=== PATIENT | female | born 1965 ===

== ENCOUNTER 2017-06-24 17:36 | Observation (INO) | payer BC, OTHER ==
[2017-06-24 17:36] VITALS: BMI 22.8
--- NOTE | 2017-06-24 19:57 | C.PDOC ---
History Of Present Illness 52 year old male brought in to the ER via EMS for acute ETOH intoxication. Patient appears lethargic but easily arousable; no injuries present, denies physical complaints at this time. Chief Complaint (Nursing): Substance Abuse History Per: Patient History/Exam Limitations: no limitations Onset/Duration Of Symptoms: Hrs Current Symptoms Are (Timing): Still Present Suicide/Self Injury Attempted (Context): None Modifying Factor(s): Alcohol Associated Symptoms: denies: Depression, Suicidal Thoughts, Suicidal Plan Involuntary Hold By: None Recent travel outside of the [place]: No Past Medical History Reviewed: Historical Data, Nursing Documentation, Vital Signs Vital Signs: Last Vital Signs Temp 98 F 06/25/17 02:49 Pulse 89 06/25/17 02:49 Resp 16 06/25/17 02:49 BP 112/69 06/25/17 02:49 Pulse Ox 96 06/25/17 03:56 - Medical History PMH: Anxiety, Depression, Chronic Pain (right foot pain) Surgical History: Hernia Repair - [facility] Procedures ALCOHOL DETOXIFICATION (08/11/15) DETOXIFICATION SERVICES FOR SUBSTANCE ABUSE TREATMENT (08/13/16) GROUP GUITAR REPAIRER FOR SUBSTANCE ABUSE TREATMENT, PSYCHOEDUCATION (08/13/16) GROUP PSYCHOTHERAPY (02/22/16) MEDICATION MANAGEMENT (02/22/16) Family History: States: Unknown Family Hx - Social History Hx Tobacco Use: Yes (10 cigarettes daily) Hx Alcohol Use: Yes Hx Substance Use: Yes (denies) - Immunization History Hx Tetanus Toxoid Vaccination: No Hx Influenza Vaccination: No Hx Pneumococcal Vaccination: No Review Of Systems Constitutional: Negative for: Fever, Chills Gastrointestinal: Negative for: Nausea, Vomiting, Diarrhea Physical Exam - Physical Exam Appears: Non-toxic, No Acute Distress, Other (ETOH on breath, lethargic) Skin: Normal Color, Warm, Dry Head: Atraumatic, Normacephalic Oral Mucosa: Moist Chest: Symmetrical, No Tenderness Cardiovascular: Rhythm Regular, No Murmur Respiratory: Normal Breath Sounds, No Rales, No Rhonchi, No Wheezing Gastrointestinal/Abdominal: Soft, No Tenderness Neurological/Psych: Oriented x3, Normal Speech, Normal Cognition ED Course And Treatment - Laboratory Results Result Diagrams: 06/24/17 20:16 06/24/17 20:16 O2 Sat by Pulse Oximetry: 96 (Room air) Pulse Ox Interpretation: Normal Progress Note: Blood work and urinalysis ordered. ED OBSERVATION Date of observation admission: 06/24/17 Time of observation admission: 19:16 - Observation admission statement Patient is being placed in observation because:: Acute ETOH intoxication - Goals of Observation Goals of observation are:: Sobriety Disposition Counseled Patient/Family Regarding: Diagnosis - Disposition Disposition: HOME/ ROUTINE Disposition Time: 05:36 Condition: STABLE - POA Present On Arrival: None - Clinical Impression Clinical Impression: Alcohol intoxication - Scribe Statement The provider has reviewed the documentation as recorded by the Scribgiles Monahan All medical record entries made by the Lobo were at my direction and personally dictated by me. I have reviewed the chart and agree that the record accurately reflects my personal performance of the history, physical exam, medical decision making, and the department course for this patient. I have also personally directed, reviewed, and agree with the discharge instructions and disposition.
[2017-06-24 20:26] LABS: BASO % 0.7 % (0.0-2.0); EOS # 0.1 K/uL (0.0-0.7); EOS % 2.4 % (0.0-4.0); HEMATOCRIT 39.5 % (34.0-47.0); LYMPH # 2.5 K/uL (1.0-4.3); LYMPH % 41.2 % (20.0-40.0); MEAN CORPUSCULAR HEMOGLOBIN 33.4 pg (27.0-31.0); MEAN CORPUSCULAR HGB CONC 33.5 g/dL (33.0-37.0); MEAN PLATELET VOLUME 8.3 fL (7.2-11.7); MONO # 0.2 K/uL (0.0-0.8); MONO % 3.6 % (0.0-10.0); RED CELL DISTRIBUTION WIDTH 14.7 % (11.5-14.5)
[2017-06-24 20:30] LABS: MEAN CELL VOLUME 99.8 fL (81.0-99.0); WHITE BLOOD COUNT 6.1 K/uL (4.8-10.8)
[2017-06-24 20:45] LABS: CHLORIDE 102 mmol/L (98-107)
[2017-06-24 20:46] LABS: POTASSIUM 3.5 mmol/L (3.6-5.2); SODIUM 147 mmol/L (132-148)
[2017-06-24 20:48] LABS: ALB/GLOB RATIO 1.4 (1.0-2.1); AST/SGOT 57 U/L (14-36); BILIRUBIN,TOTAL 0.4 mg/dL (0.2-1.3); BLOOD UREA NITROGEN 17 mg/dL (7-17); CARBON DIOXIDE 25 mmol/L (22-30); GFR AFRICAN-AMERICAN > 60; TOTAL PROTEIN 6.7 g/dL (6.3-8.3)
[2017-06-24 20:49] LABS: ALKALINE PHOSPHATASE 76 U/L (38-126); ALT/SGPT 61 U/L (9-52); CALCIUM 8.6 mg/dl (8.6-10.4); GLUCOSE,RANDOM 92 mg/dL (65-105)
[2017-06-24 21:11] LABS: ALCOHOL SERUM 420 mg/dl (0-10)
[2017-06-24 22:26] VITALS: RESP 16; TEMP 98
[2017-06-25 02:50] VITALS: BP 112/69; PULSE 89
[2017-06-25 03:56] VITALS: O2SAT 96
== END 2017-06-25 05:37 | disposition home or self-care (01) ==
LOC: C.ER 17:36 → C.9E 21:16 → C.9OBSV 22:58
PROVIDERS: ADMIT Emergency Medicine; ATTEND Emergency Medicine
DX: F10.120 Alcohol abuse with intoxication, uncomplicated (principal); Y90.8 Blood alcohol level of 240 mg/100 ml or more; F17.210 Nicotine dependence, cigarettes, uncomplicated
CPT/HCPCS: 36415; 80053; 82948; 85025; 99284; G0378; G0480

== ENCOUNTER 2017-10-15 09:16 | Emergency (ER) | payer BC, MEDICAID ==
[2017-10-15 09:45] VITALS: BMI 22.5
--- NOTE | 2017-10-15 09:47 | C.PDOC ---
History Of Present Illness 52 yr old female with PMHx of depression and alcohol abuse, presents to the ER for evaluation of suicidal ideation. Patient states " I feel like cutting my wrist" for the past few days. Patient is currently appears slight under alcohol intoxication but awake and alert. Pt Denies any active physical complaints. Time Seen by Provider: 10/15/17 09:42 Chief Complaint (Nursing): Psychiatric Evaluation History Per: Patient History/Exam Limitations: no limitations Onset/Duration Of Symptoms: Days Current Symptoms Are (Timing): Still Present Suicide/Self Injury Attempted (Context): Cut Wrists Modifying Factor(s): Alcohol Past Medical History Reviewed: Historical Data, Nursing Documentation, Vital Signs Vital Signs: Last Vital Signs Temp 98.6 F 10/15/17 16:18 Pulse 88 10/15/17 16:18 Resp 20 10/15/17 16:18 BP 120/83 10/15/17 16:18 Pulse Ox 96 10/15/17 16:18 - Medical History PMH: Anxiety, Depression, Chronic Pain (right foot pain) Surgical History: Hernia Repair - [facility] Procedures ALCOHOL DETOXIFICATION (08/11/15) DETOXIFICATION SERVICES FOR SUBSTANCE ABUSE TREATMENT (08/13/16) GROUP LYE TREATER FOR SUBSTANCE ABUSE TREATMENT, PSYCHOEDUCATION (08/13/16) GROUP PSYCHOTHERAPY (02/22/16) MEDICATION MANAGEMENT (02/22/16) Family History: States: No Known Family Hx - Social History Hx Tobacco Use: Yes (10 cigarettes daily) Hx Alcohol Use: Yes Hx Substance Use: Yes (denies) - Immunization History Hx Tetanus Toxoid Vaccination: No Hx Influenza Vaccination: No Hx Pneumococcal Vaccination: No Review Of Systems Except As Marked, All Systems Reviewed And Found Negative. Constitutional: Negative for: Fever Cardiovascular: Negative for: Chest Pain Respiratory: Negative for: Shortness of Breath Gastrointestinal: Negative for: Nausea, Vomiting, Abdominal Pain Psych: Positive for: Suicidal ideation Physical Exam - Physical Exam Appears: Well, Non-toxic, No Acute Distress Skin: Warm, Dry, No Rash Head: Atraumatic, Normacephalic Eye(s): bilateral: PERRL Nose: No Flaring, No Discharge Oral Mucosa: Moist, No Drooling Tongue: Normal Appearing Lips: Normal Appearing Throat: No Erythema, No Exudate, No Drooling Neck: Trachea Midline, Supple Chest: Symmetrical, No Tenderness Cardiovascular: Rhythm Regular, No Murmur Respiratory: No Decreased Breath Sounds, No Rales, No Rhonchi, No Stridor, No Wheezing Back: No CVA Tenderness Extremity: Normal ROM, No Deformity, No Swelling Extremity: Bilateral: Atraumatic Neurological/Psych: Oriented x3, Normal Speech, Normal Motor, Normal Sensation, Normal Reflexes ED Course And Treatment - Laboratory Results Result Diagrams: 10/15/17 10:34 10/15/17 10:34 Lab Interpretation: Normal Urine POC: Negative ECG: Interpreted By Me, Viewed By Me ECG Rhythm: Sinus Rhythm ECG Interpretation: Normal Interpretation Of ECG: Normal axis. No acute T wave or ST-T changes. Rate From EC (BPM) O2 Sat by Pulse Oximetry: 96 (RA) Pulse Ox Interpretation: Normal - Radiology CXR: Viewed By Me, Read By Radiologist CXR Interpretation: Yes: No Acute Disease Progress Note: At 12:10, pt is medically cleared for crisis evaluation now. AT 14:10, pt remained stable, not in any apparent distress. AAO#3. Neurologicaly intact. Pt was evaluated by Crisis and admission arranged to psych floor DR.Mirza moore. As per Crisis, pt is unable to be admitted to [facility] psych Unit " beacuse her significant other admitted to Unit with same compalints", conflict of patient privacy. Arrangement to transfered pateint to [facility] psych Unit made. Medical Decision Making Medical Decision Making: PLAN: * CXR * EKG * Alcohol Serum * Drug Screen * CBC * CMP * Urinalysis * Tylenol PO * Zofran PO Disposition - Disposition Disposition: OTHER INSTITUTION Disposition Time: 14:42 Condition: STABLE - Clinical Impression Clinical Impression: Major depression, Suicidal ideation - PA / ENAMEL DIPPER / Resident Statement MD/DO has reviewed & agrees with the documentation as recorded. - Scribe Statement The provider has reviewed the documentation as recorded by the Scribe Chely Paulino All medical record entries made by the Scribe were at my direction and personally dictated by me. I have reviewed the chart and agree that the record accurately reflects my personal performance of the history, physical exam, medical decision making, and the department course for this patient. I have also personally directed, reviewed, and agree with the discharge instructions and disposition.
--- NOTE | 2017-10-15 10:28 | RAD ---
HISTORY: Detox/Psy COMPARISON: No prior. TECHNIQUE: Chest PA and lateral FINDINGS: LUNGS: No focal infiltrate or effusion. Bibasilar breast and nipple shadows. Mild biapical pleural thickening. PLEURA: No significant pleural effusion identified. No pneumothorax apparent. CARDIOVASCULAR: Normal. OSSEOUS STRUCTURES: No significant abnormalities. VISUALIZED UPPER ABDOMEN: Normal. OTHER FINDINGS: None. IMPRESSION: No active disease.
[2017-10-15 10:37] LABS: BASO # 0.1 K/uL (0.0-0.2); BASO % 1.1 % (0.0-2.0); EOS # 0.1 K/uL (0.0-0.7); EOS % 3.1 % (0.0-4.0); HEMATOCRIT 33.5 % (34.0-47.0); LYMPH # 1.5 K/uL (1.0-4.3); LYMPH % 31.1 % (20.0-40.0); MEAN CELL VOLUME 98.1 fL (81.0-99.0); MEAN CORPUSCULAR HEMOGLOBIN 33.3 pg (27.0-31.0); MEAN CORPUSCULAR HGB CONC 33.9 g/dL (33.0-37.0); MEAN PLATELET VOLUME 7.3 fL (7.2-11.7); MONO # 0.3 K/uL (0.0-0.8); MONO % 5.5 % (0.0-10.0); NRBC % 0.1 % (0.0-2.0); RED CELL DISTRIBUTION WIDTH 13.6 % (11.5-14.5); WHITE BLOOD COUNT 4.8 K/uL (4.8-10.8)
[2017-10-15 10:53] LABS: ALB/GLOB RATIO 1.1 (1.0-2.1); ALCOHOL SERUM 211 mg/dl (0-10); ALKALINE PHOSPHATASE 80 U/L (38-126); ALT/SGPT 37 U/L (9-52); AST/SGOT 35 U/L (14-36); BILIRUBIN,TOTAL 0.3 mg/dL (0.2-1.3); BLOOD UREA NITROGEN 17 mg/dL (7-17); CALCIUM 8.1 mg/dl (8.6-10.4); CARBON DIOXIDE 23 mmol/L (22-30); CHLORIDE 104 mmol/L (98-107); GFR AFRICAN-AMERICAN > 60; GLUCOSE,RANDOM 88 mg/dL (65-105); POTASSIUM 3.6 mmol/L (3.6-5.2); SODIUM 137 mmol/L (132-148); TOTAL PROTEIN 7.5 g/dL (6.3-8.3)
[2017-10-15 11:24] LABS: RBC URINE < 1 /hpf (0-3); URINE BILIRUBIN NEGATIVE (NEGATIVE); URINE BLOOD NEGATIVE (NEGATIVE); URINE COLOR Straw (YELLOW); URINE GLUCOSE (UA) NORMAL (Normal); URINE KETONE NEGATIVE (NEGATIVE); URINE LEUKOCYTE ESTERASE NEG Leu/uL (Negative); URINE PROTEIN NEGATIVE (NEGATIVE); URINE UROBILINOGEN NORMAL mg/dL (0.2-1.0); WBC URINE < 1 /hpf (0-5)
[2017-10-15 17:09] VITALS: BP 144/84; PULSE 82; RESP 16; TEMP 97.8; O2SAT 97
--- NOTE | 2017-10-17 17:55 | CARD ---
APPROVED REPORT EKG Measurement Heart [id number] <Conclusion> Normal sinus rhythm Normal ECG
== END 2017-10-15 17:25 | disposition short-term general hospital (02) ==
LOC: C.ER 09:16 → C.9E 14:44 → UNDOADMIN 14:44
DX: F32.9 Major depressive disorder, single episode, unspecified (principal); R45.851 Suicidal ideations; Z87.891 Personal history of nicotine dependence

== ENCOUNTER 2017-12-22 18:21 | Emergency (ER) | payer MEDICAID, OTHER ==
[2017-12-22 18:21] VITALS: BMI 22.0
--- NOTE | 2017-12-22 18:42 | C.PDOC ---
History Of Present Illness Patient is a 52 y/o F presenting for detox. She admits to drinking today. She ambulated into ED without issue. Patient was made aware of lack of detox beds and immediately became irritate and agitated. She was refusing futher evaluation and began to scream at staff. Time Seen by Provider: 12/22/17 18:25 Chief Complaint (Nursing): Medical Clearance Past Medical History - Medical History PMH: Anxiety, Depression, Chronic Pain (right foot pain) Denies: Diabetes, Hepatitis, HIV, HTN, Chronic Kidney Disease, Seizures, Sexually Transmitted Disease Surgical History: Hernia Repair - [facility] Procedures ALCOHOL DETOXIFICATION (08/11/15) DETOXIFICATION SERVICES FOR SUBSTANCE ABUSE TREATMENT (08/13/16) GROUP RIM FIRE PRIMING OPERATOR FOR SUBSTANCE ABUSE TREATMENT, PSYCHOEDUCATION (08/13/16) GROUP PSYCHOTHERAPY (02/22/16) MEDICATION MANAGEMENT (02/22/16) Family History: States: Unknown Family Hx - Social History Hx Tobacco Use: Yes (10 cigarettes daily) Hx Alcohol Use: Yes Hx Substance Use: No - Immunization History Hx Tetanus Toxoid Vaccination: No Hx Influenza Vaccination: No Hx Pneumococcal Vaccination: No Physical Exam - Physical Exam Appears: Agitated Neck: Supple Extremity: Other (moving extremities x4) Neurological/Psych: Oriented x3 Gait: Steady Medical Decision Making Medical Decision Making: Patient is verbally abusive to staff and yelling profanities. Security was called. I am unable to perform exam as patient is refusing exam. She is irrate that there are no detox beds available. She is AAox3 with no homicidal or suicidal ideation. No indication for sedation. She is ambulating around with steady gait. Patient was aggressive and I was unable to perform any further exam due to my safety Disposition - Disposition Disposition: HOME/ ROUTINE Disposition Time: 18:41 Condition: UNKNOWN Forms: [employer] (Chinese) - Clinical Impression Clinical Impression: Agitation, Alcohol abuse
== END 2017-12-22 18:59 | disposition home or self-care (01) ==
LOC: C.ER 18:21
DX: F10.10 Alcohol abuse, uncomplicated (principal); R45.1 Restlessness and agitation; F17.210 Nicotine dependence, cigarettes, uncomplicated

== ENCOUNTER 2018-09-14 13:21 | Inpatient (IN) | payer BC, MEDICAID ==
[2018-09-14 13:22] VITALS: BMI 23.6
[2018-09-14 14:01] LABS: BASO # 0.1 K/uL (0.0-0.2); EOS # 1.2 K/uL (0.0-0.7); EOS % 14.2 % (0.0-4.0); HEMOGLOBIN 11.7 g/dL (11.0-16.0); LYMPH % 36.7 % (20.0-40.0); MEAN CORPUSCULAR HEMOGLOBIN 31.1 pg (27.0-31.0); MEAN CORPUSCULAR HGB CONC 33.8 g/dL (33.0-37.0); MONO # 0.3 K/uL (0.0-0.8); MONO % 3.9 % (0.0-10.0); NEUT # 3.6 K/uL (1.8-7.0); NEUT % 44.2 % (50.0-75.0); NRBC % 0.1 % (0.0-2.0); RBC 3.77 Mil/uL (3.80-5.20); RED CELL DISTRIBUTION WIDTH 12.5 % (11.5-14.5)
[2018-09-14 14:06] LABS: MEAN CELL VOLUME 91.8 fL (81.0-99.0); WHITE BLOOD COUNT 8.1 K/uL (4.8-10.8)
[2018-09-14 14:19] LABS: ALB/GLOB RATIO 1.6 (1.0-2.1); ALBUMIN 4.3 g/dL (3.5-5.0); ALT/SGPT 24 U/L (9-52); AST/SGOT 24 U/L (14-36); BLOOD UREA NITROGEN 11 mg/dL (7-17); GFR NON-AFRICAN AMERICAN > 60
--- NOTE | 2018-09-14 14:41 | C.PDOC ---
History Of Present Illness 53-year-old female, presents to the emergency department for psychiatric evaluation. Patient was in treatment in [place], after which she was discharged and clean until 55 days ago. Patient was incarcerated and on bench warrant. She was released on 09/07 and has been "self medicating" with alcohol since. Patient states she has not been able to take her psych meds (Lexapro, Lamictal, Gabapentin) due to lack of insurance. No SI at this time. Time Seen by Provider: 09/14/18 13:42 Chief Complaint (Nursing): Psychiatric Evaluation History Per: Patient History/Exam Limitations: no limitations Current Symptoms Are (Timing): Still Present Past Medical History Reviewed: Historical Data, Nursing Documentation, Vital Signs Vital Signs: Last Vital Signs Temp 98.5 F 09/14/18 13:29 Pulse 103 H 09/14/18 13:29 Resp 18 09/14/18 13:29 BP 118/80 09/14/18 13:29 Pulse Ox 100 09/14/18 13:29 - Medical History PMH: Anxiety, Depression, Chronic Pain (right foot pain) Surgical History: Hernia Repair - [facility] Procedures ALCOHOL DETOXIFICATION (08/11/15) DETOXIFICATION SERVICES FOR SUBSTANCE ABUSE TREATMENT (08/13/16) GROUP MASTER RIGGER FOR SUBSTANCE ABUSE TREATMENT, PSYCHOEDUCATION (08/13/16) GROUP PSYCHOTHERAPY (02/22/16) MEDICATION MANAGEMENT (02/22/16) Family History: States: No Known Family Hx - Social History Hx Tobacco Use: Yes (10 cigarettes daily) Hx Alcohol Use: Yes (Denies) Hx Substance Use: No (Denies) - Immunization History Hx Tetanus Toxoid Vaccination: No Hx Influenza Vaccination: No Hx Pneumococcal Vaccination: No Review Of Systems Constitutional: Negative for: Fever Cardiovascular: Negative for: Chest Pain Gastrointestinal: Negative for: Vomiting Musculoskeletal: Negative for: Back Pain Skin: Negative for: Rash Psych: Negative for: Psychosis, Suicidal ideation, Withdrawal Physical Exam - Physical Exam Appears: Non-toxic, No Acute Distress Skin: Normal Color, Warm, Dry, No Rash Head: Atraumatic, Normacephalic Eye(s): bilateral: Normal Inspection, PERRL, EOMI Nose: Normal Oral Mucosa: Moist Lips: Normal Appearing Neck: Normal ROM Chest: Symmetrical Cardiovascular: Rhythm Regular, No Murmur Respiratory: Normal Breath Sounds, No Accessory Muscle Use Gastrointestinal/Abdominal: Soft, No Tenderness Back: Normal Inspection Extremity: Normal ROM, No Deformity Neurological/Psych: Oriented x3, Normal Speech ED Course And Treatment - Laboratory Results Result Diagrams: 09/14/18 13:57 09/14/18 13:57 Lab Interpretation: No Acute Changes O2 Sat by Pulse Oximetry: 100 Pulse Ox Interpretation: Normal (RA) Medical Decision Making Medical Decision Making: Plan: * Bloodwork * UA Labs ordered and reviewed. In my clinical judgment patient is medically cleared and stable for psychiatric admission. rock worker contacted for evaluation. As per CW patient is to be admitted. Disposition - Disposition Disposition: HOSPITALIZED Disposition Time: 16:40 Condition: STABLE - POA Present On Arrival: None - Clinical Impression Clinical Impression: Depression - Scribe Statement The provider has reviewed the documentation as recorded by the Scribe (Clint Bhandari) All medical record entries made by the Scribe were at my direction and personally dictated by me. I have reviewed the chart and agree that the record accurately reflects my personal performance of the history, physical exam, medical decision making, and the department course for this patient. I have also personally directed, reviewed, and agree with the discharge instructions and disposition. Decision To Admit - Pt Status Changed To: Hospital Disposition Of: Inpatient - Admit Certification Admit to Inpatient:: After my assessment, the patient will require hospitalization for at least two midnights. This is because of the severity of symptoms shown, intensity of services needed, and/or the medical risk in this patient being treated as an outpatient. - InPatient: Physician Admission Certification: I certify that this patient requires 2 or more midnights of care for the following reason:: Patient with history of depression, needs to resume meds - . Bed Request Type: Psychiatry Admitting Physician: Verónica Pringle Patient Diagnosis: Depression
[2018-09-14 16:01] LABS: HCG,QUALITATIVE URINE NEGATIVE (NEGATIVE); SQUAMOUS EPITHIAL 2 /hpf (0-5); URINE BILIRUBIN NEGATIVE (NEGATIVE); URINE BLOOD NEGATIVE (NEGATIVE); URINE CLARITY Clear (Clear); URINE COLOR Yellow (YELLOW); URINE GLUCOSE (UA) NORMAL (Normal); URINE LEUKOCYTE ESTERASE NEG Leu/uL (Negative); URINE PROTEIN NEGATIVE (NEGATIVE); URINE UROBILINOGEN NORMAL mg/dL (0.2-1.0)
[2018-09-14 16:15] LABS: BARBITURATES, UR NEGATIVE (NEGATIVE); BENZODIAZEPINES, UR NEGATIVE (NEGATIVE); OPIATES, UR NEGATIVE (NEGATIVE); PHENCYCLIDINE, UR NEGATIVE (NEGATIVE)
[2018-09-14 17:22] VITALS: O2SAT 98
--- NOTE | 2018-09-14 17:48 | PCM.BM ---
<Marco A Man - Last Filed: 09/14/18 17:46> Treatment Plan Problems - Problems identified on initial assessmt Depression Date Initiated: 09/14/18 Time Initiated: 17:46 Assessment reference: NA Status: Active Alcohol abuse Date Initiated: 09/14/18 Time Initiated: 17:47 Assessment reference: NA Status: Active Treatment assets and liabiliti Patient Assests: ADL independent, physically healthy Patient Liabilities: live alone, physical pain, financial problems (Unemployed), substance abuse (Alcohol abuse), medical problems, legal issue (Recently incarcerated) - Milieu Protocol Maintain good personal hygiene: daily Encourage regular showers, daily Remind patient to perform daily oral care, every shift Assist patient to perform ADL's Conduct patient checks and document Observation sheet: Q15 minutes (For safety) Maintain personal safety: every shift Educate patient to report safety concerns to staff, every shift Monitor environment for contraband/sharps Medication safety: Monitor for expected outcome, potential side effects: every shift, Assess barriers to learning: every shift, Assess readiness for medication education: every shift <Tam Hayden - Last Filed: 09/15/18 09:45> - Diagnosis (1) Bipolar disorder Status: Acute Interventions: 09/15/18 09:46 * Assess/adjust medications daily and /or as needed * See patient on an individual basis 7x/week to assess level of manic behaviors and stability * Discuss risks, benefits, side effects and alternatives of medications * <Zenaida Mcclelland - Last Filed: 09/15/18 10:21> Family Contact Family involvement: Famliy/SO not involved - Goals for Treatment Patient goals for treatment: "I need ECT." Discharge/Continuing Care - Education Needs Education Needs: Patient Medication, Patient Coping Skills - Discharge Discharge Criteria: Tolerates medication w/o severe side effects, No longer exhibiting s/s of withdrawal, Reduction of target symptoms Discharge to:: Home - Treatment Team Participation Discussed with Family/SO: No Was Patient/Family/SO present at Treatment Team Meeting: Yes
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
[2018-09-16] MEDS ORDERED: Pneumococcal 23-Valent Vaccine IM ONE (10:00)
[2018-09-16] MEDS: Benzocaine 10% Oral Anesthetic (12 ml) MM PRN (16:27)
--- NOTE | 2018-09-16 16:54 | PCM.PYCHPN ---
Psychiatric Progress Note - Psychiatric Progress Note Patient seen today, length of contact: 15 minutes Patient Chief Complaint: I'm feeling much better. Problems Identified/Issues Discussed: Patient seen, chart reviewed, case discussed with the staff. Issues related to illness and treatment were discussed with the patient and staff. Tolerating treatment very well. Reported compliant with treatment with no adverse affects. Patient reported feeling better with treatment. Patient signed 48 hours of notice for discharge. Patient was calm and cooperative. Awake, alert and oriented 3. Aftercare discussed with the patient. At the time of evaluation, patient had no delusions, no auditory or visual hallucinations, no suicidal ideations or homicidal ideations. Medical Problems: None reported Diagnostic Results: Reviewed DSM 5 Symptoms Update: Improving with treatment Medication Change: No Medical Record Reviewed: Yes Mental Status Examination - Cognitive Function Orientation: Person, Place, Situation, Time Memory: Intact Attention: WNL Concentration: WNL Association: WN Fund of Knowledge: [facility] Decription of patient's judgement and insights: Fair - Mood Mood: Depressed (Less than before) - Affect Affect: Depressed - Speech Speech: Appropriate - Formal Thought Process Formal Thought Process: No Impairment Psychotic Thoughts and Behaviors: None - Suicidal Ideation Suicidal Ideation: No - Homicidal Ideation Homicidal Ideation: No Goal/Treatment Plan - Goal/Treatment Plan Need for Continued Stay: Remain at risks for inpatient hospitalization, Discharge may exacerbated symptoms, Severe functional impairment Progress Toward Problem(s) and Goals/Treatment Plan: Patient/staff education. Supportive therapy. Continue treatment as before. Patient will go to [facility] for follow-up care after discharge from the hospital. Estimated Date of D/C: 09/18/18 - Smoking Cessation Smoking Cessation Initiated: No
[2018-09-17] MEDS: Benzocaine 10% Oral Anesthetic (12 ml) MM PRN ×3 (11:07→21:39)
--- NOTE | 2018-09-17 18:00 | PCM.PYCHPN ---
Psychiatric Progress Note - Psychiatric Progress Note Patient seen today, length of contact: 15 minutes Patient Chief Complaint: I'm feeling much better. Problems Identified/Issues Discussed: Patient seen, chart reviewed, case discussed with the staff. Issues related to illness and treatment were discussed with the patient and staff. Tolerating treatment very well. Reported compliant with treatment with no adverse affects. Patient reported feeling better with treatment. Patient signed 48 hours of notice for discharge ending tomorrow. Patient reported in the past she had for ECT and would like to continue ECT in the future. Patient was calm and cooperative. Awake, alert and oriented 3. Aftercare discussed with the patient. At the time of evaluation, patient had no delusions, no auditory or visual hallucinations, no suicidal ideations or homicidal ideations. Medical Problems: None reported Diagnostic Results: Reviewed DSM 5 Symptoms Update: Improving with treatment. Medication Change: No Medical Record Reviewed: Yes Mental Status Examination - Cognitive Function Orientation: Person, Place, Situation, Time Memory: Intact Attention: WNL Concentration: WNL Association: [facility] Fund of Knowledge: [facility] Decription of patient's judgement and insights: Fair - Mood Mood: Neutral - Affect Affect: Other (Appropriate) - Speech Speech: Appropriate - Formal Thought Process Formal Thought Process: No Impairment Psychotic Thoughts and Behaviors: None - Suicidal Ideation Suicidal Ideation: No - Homicidal Ideation Homicidal Ideation: No Goal/Treatment Plan - Goal/Treatment Plan Need for Continued Stay: Remain at risks for inpatient hospitalization, Discharge may exacerbated symptoms, Severe functional impairment Progress Toward Problem(s) and Goals/Treatment Plan: Patient/staff education. Supportive therapy. Continue treatment as before. Patient will go to [facility] for follow-up care after discharge from the hospital. Estimated Date of D/C: 09/18/18 - Smoking Cessation Smoking Cessation Initiated: No
[2018-09-18 06:38] VITALS: BP 104/67; PULSE 75; RESP 18; TEMP 98.3
[2018-09-18] MEDS ORDERED: Influenza Vaccine 60 MCG/0.5 ML SYR (3 yr & up) IM ONE (10:00)
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
== END 2018-09-18 11:13 | disposition home or self-care (01) | DRG 753 ==
LOC: C.ER 13:21 → MERGE 16:39 → C.5E 16:39
PROVIDERS: ADMIT Psychiatry & Neurology Psychiatry; ATTEND Psychiatry & Neurology Psychiatry
PROC: GZHZZZZ Group Psychotherapy (ICD-10-PCS; principal; 2018-09-14)
PROC: HZ59ZZZ Individual Psychotherapy for Substance Abuse Treatment, Supportive (ICD-10-PCS; 2018-09-14)
PROC: GZ56ZZZ Individual Psychotherapy, Supportive (ICD-10-PCS; 2018-09-14)
DX: F31.9 Bipolar disorder, unspecified (principal); F10.20 Alcohol dependence, uncomplicated; Y90.7 Blood alcohol level of 200-239 mg/100 ml; F43.10 Post-traumatic stress disorder, unspecified; F17.210 Nicotine dependence, cigarettes, uncomplicated; Z91.410 Personal history of adult physical and sexual abuse; Z81.3 Family history of other psychoactive substance abuse and dependence

== ENCOUNTER 2018-10-12 01:08 | Emergency (ER) | payer BC, MEDICAID ==
[2018-10-12 01:08] VITALS: BMI 22.8
--- NOTE | 2018-10-12 01:34 | C.PDOC ---
History Of Present Illness 53 year old female is brought to the ED by EMS for public intoxication. Patient was found in front of a bar intoxicated. Patient denies SI/HI, hallucinations, CP, SOB, injury, fall, trauma. Time Seen by Provider: 10/12/18 01:33 Chief Complaint (Nursing): Substance Abuse History Per: Patient, EMS History/Exam Limitations: intoxication Onset/Duration Of Symptoms: Hrs Current Symptoms Are (Timing): Still Present Suicide/Self Injury Attempted (Context): None Modifying Factor(s): Alcohol Associated Symptoms: denies: Depression, Suicidal Thoughts, Suicidal Plan Recent travel outside of the [place]: No Additional History Per: Patient Past Medical History Reviewed: Historical Data, Nursing Documentation, Vital Signs Vital Signs: Last Vital Signs Temp 98.2 F 10/12/18 01:17 Pulse 102 H 10/12/18 01:17 Resp 22 10/12/18 01:17 BP 138/91 H 10/12/18 01:17 Pulse Ox 98 10/12/18 01:17 - Medical History PMH: Depression, HTN Denies: Diabetes, Hepatitis, HIV, Chronic Kidney Disease, Seizures, Sexually Transmitted Disease Surgical History: No Surg Hx - [facility] Procedures GROUP PSYCHOTHERAPY (01/08/18) INDIVIDUAL PSYCHOTHERAPY, SUPPORTIVE (01/08/18) MEDICATION MANAGEMENT (01/08/18) Family History: States: Unknown Family Hx - Social History Hx Alcohol Use: Yes Hx Substance Use: Yes - Immunization History Hx Tetanus Toxoid Vaccination: No Review Of Systems Constitutional: Negative for: Fever, Chills Cardiovascular: Negative for: Chest Pain Respiratory: Negative for: Cough, Shortness of Breath Gastrointestinal: Negative for: Nausea, Vomiting, Abdominal Pain Neurological: Negative for: Weakness, Numbness Psych: Negative for: Depression, Suicidal ideation Physical Exam - Physical Exam Appears: Non-toxic, No Acute Distress Skin: Warm, Dry Head: Normacephalic Eye(s): bilateral: Normal Inspection Neck: Supple Chest: Symmetrical Cardiovascular: Rhythm Regular Respiratory: No Rales, No Rhonchi, No Wheezing Gastrointestinal/Abdominal: Soft, No Tenderness, No Guarding, No Rebound Extremity: Bilateral: Atraumatic, Normal Color And Temperature, Normal ROM Neurological/Psych: Oriented x3, Normal Speech, Normal Cognition Gait: Steady ED Course And Treatment O2 Sat by Pulse Oximetry: 98 (ON RA) Pulse Ox Interpretation: Normal Reevaluation Time: 05:11 Reassessment Condition: Improved Disposition Counseled Patient/Family Regarding: Studies Performed, Diagnosis, Need For Followup - Disposition Referrals: [facility] [Outside] Disposition: HOME/ ROUTINE Disposition Time: 01:33 Condition: FAIR Instructions: Alcohol Abuse and Alcoholism (DC) Forms: [facility] (Occitan) - Clinical Impression Clinical Impression: Alcohol intoxication - Scribe Statement The provider has reviewed the documentation as recorded by the Scribe Oseas Ortega All medical record entries made by the Scribe were at my direction and personally dictated by me. I have reviewed the chart and agree that the record accurately reflects my personal performance of the history, physical exam, medical decision making, and the department course for this patient. I have also personally directed, reviewed, and agree with the discharge instructions and disposition.
[2018-10-12 05:42] VITALS: BP 138/87; PULSE 88; RESP 18; TEMP 98.3; O2SAT 99
== END 2018-10-12 06:19 | disposition home or self-care (01) ==
LOC: EDUNIT# 01:08 → C.ER 01:08
DX: F10.129 Alcohol abuse with intoxication, unspecified (principal); Y90.9 Presence of alcohol in blood, level not specified

== ENCOUNTER 2018-12-29 18:21 | Emergency (ER) | payer MEDICAID ==
[2018-12-29 18:22] VITALS: BMI 23.6
[2018-12-29 18:27] VITALS: BP 127/83; PULSE 75; RESP 20; TEMP 98.4; O2SAT 97
--- NOTE | 2018-12-29 19:33 | C.PDOC ---
History Of Present Illness Patient is a 53 year female biba who presents to the ED for public intoxication. Patient has a vertical oriented laceration to the mid forehead. She denies any LOC, CP, SOB, SI/HI. or hallucinations. Time Seen by Provider: 12/29/18 19:32 Chief Complaint (Nursing): Abnormal Skin Integrity History Per: Patient, EMS History/Exam Limitations: intoxication Recent travel outside of the [place]: No Additional History Per: Patient, EMS Past Medical History Reviewed: Historical Data, Nursing Documentation, Vital Signs Vital Signs: Last Vital Signs Temp 98.4 F 12/29/18 18:22 Pulse 75 12/29/18 18:22 Resp 20 12/29/18 18:22 BP 127/83 12/29/18 18:22 Pulse Ox 97 12/29/18 18:22 - Medical History PMH: Anxiety, Depression, Chronic Pain (right foot pain) Denies: Diabetes, Hepatitis, HIV, HTN, Chronic Kidney Disease, Seizures, Sexually Transmitted Disease Surgical History: Hernia Repair - [facility] Procedures ALCOHOL DETOXIFICATION (08/11/15) DETOXIFICATION SERVICES FOR SUBSTANCE ABUSE TREATMENT (08/13/16) GROUP DEMOLITION WORKER FOR SUBSTANCE ABUSE TREATMENT, PSYCHOEDUCATION (08/13/16) GROUP PSYCHOTHERAPY (09/14/18) INDIV PSYCHOTHERAPY FOR SUBSTANCE ABUSE TREATMENT, SUPPORT (09/14/18) INDIVIDUAL PSYCHOTHERAPY, SUPPORTIVE (09/14/18) MEDICATION MANAGEMENT (01/08/18) Family History: States: Unknown Family Hx - Social History Hx Tobacco Use: Yes (10 cigarettes daily) Hx Alcohol Use: Yes Hx Substance Use: Yes - Immunization History Hx Tetanus Toxoid Vaccination: No Hx Influenza Vaccination: No Hx Pneumococcal Vaccination: No Review Of Systems Constitutional: Negative for: Other (LOC) Cardiovascular: Negative for: Chest Pain Respiratory: Negative for: Shortness of Breath Psych: Negative for: Suicidal ideation, Other (homicidal ideation, hallucinations ) Physical Exam - Physical Exam Appears: Non-toxic, No Acute Distress, Combative, Other (verbally abusive, argumentative, confrontational, doesn't want to be here) Skin: Normal Color, Warm, Dry, Other (5cm vertical laceration to mid forehead) Head: Normacephalic Oral Mucosa: Moist Neck: Normal ROM Chest: Symmetrical, No Deformity Cardiovascular: Rhythm Regular, No Murmur Respiratory: Normal Breath Sounds, No Rales, No Rhonchi, No Wheezing Gastrointestinal/Abdominal: Soft, No Guarding, No Rebound Extremity: Normal ROM Neurological/Psych: Oriented x3 ED Course And Treatment O2 Sat by Pulse Oximetry: 97 Medical Decision Making Medical Decision Making: forehead lac non-cooperative asks to be d/c advised to return in AM for suture repair at bedside. will escort her safely home Disposition Doctor Will See Patient In The: Office Counseled Patient/Family Regarding: Studies Performed, Diagnosis - Disposition Referrals: Alcoholics Anonymous [Outside] [facility] [Outside] [facility] [Outside] [facility] [Outside] [facility] [Outside] Disposition: HOME/ ROUTINE Disposition Time: 19:32 Condition: GOOD Additional Instructions: please return to ED when sober and cooperative for laceration repair abusive behavior of the ED staff and patients will NEVER be tolerated. Instructions: Alcohol Use - When Is Drinking a Problem?, Laceration Repair Forms: [facility] (Macedonian) - Clinical Impression Clinical Impression: Alcohol abuse, Facial laceration - Scribe Statement The provider has reviewed the documentation as recorded by the Lobo Roque All medical record entries made by the Scribe were at my direction and personally dictated by me. I have reviewed the chart and agree that the record accurately reflects my personal performance of the history, physical exam, medical decision making, and the department course for this patient. I have also personally directed, reviewed, and agree with the discharge instructions and disposition.
== END 2018-12-29 19:35 | disposition home or self-care (01) ==
LOC: C.ER 18:21
DX: F10.10 Alcohol abuse, uncomplicated (principal); Y90.9 Presence of alcohol in blood, level not specified; S01.81XA Laceration without foreign body of other part of head, initial encounter; X58.XXXA Exposure to other specified factors, initial encounter

== ENCOUNTER 2019-01-02 10:14 | Emergency (ER) | payer MEDICAID ==
[2019-01-02 10:14] VITALS: BMI 23.6
[2019-01-02 10:24] VITALS: O2SAT 95
[2019-01-02] MEDS ORDERED: Tdap Vaccine 0.5 ml Vial (10-64 yrs) IM ONE ×2 (11:08→12:13)
--- NOTE | 2019-01-02 11:38 | C.PDOC ---
History Of Present Illness 53 y/o female with a PMHx of substance abuse presents to the ED for evaluation of laceration to the posterior scalp s/p injury sustained at 3:00am today. Patient states she was lying on the ground to relieve her chronic back pain when a metal folding chair fell on her head, causing a laceration to the left posterior scalp. Admits to large amount of bleeding initially and she was unable to stop it at home, prompting her to come in. Pt not on blood thinners. Denies substance abuse today, states her last drink was 4 days ago. Patient also reports dizziness while at home, now resolved. Otherwise she denies any LOC, visual changes, nausea, vomiting, change in speech, difficulty ambulating, weakness, numbness, or other injury. Unknown last tetanus booster. She now complains of a mild headache. Patient is ambulatory in the ED with steady gait. Time Seen by Provider: 01/02/19 10:59 Chief Complaint (Nursing): Abnormal Skin Integrity History Per: Patient History/Exam Limitations: no limitations Injury Occurred (Timing): Today @ (3:00AM) Onset/Duration Of Symptoms: Hrs Patient States: Cut With Object Loss Of Consciousness: No Past Medical History Reviewed: Historical Data, Nursing Documentation, Vital Signs Vital Signs: Last Vital Signs Temp 99.2 F 01/02/19 10:15 Pulse 112 H 01/02/19 10:15 Resp 17 01/02/19 10:15 BP 107/72 01/02/19 10:15 Pulse Ox 95 01/02/19 10:15 - Medical History PMH: Anxiety, Depression, Chronic Pain (right foot pain) Denies: Diabetes, Hepatitis, HIV, HTN, Chronic Kidney Disease, Seizures, Sexually Transmitted Disease Surgical History: Hernia Repair - [facility] ALCOHOL DETOXIFICATION (08/11/15) DETOXIFICATION SERVICES FOR SUBSTANCE ABUSE TREATMENT (08/13/16) GROUP FRUIT CUTTER FOR SUBSTANCE ABUSE TREATMENT, PSYCHOEDUCATION (08/13/16) GROUP PSYCHOTHERAPY (09/14/18) INDIV PSYCHOTHERAPY FOR SUBSTANCE ABUSE TREATMENT, SUPPORT (09/14/18) INDIVIDUAL PSYCHOTHERAPY, SUPPORTIVE (09/14/18) MEDICATION MANAGEMENT (01/08/18) Family History: States: Unknown Family Hx - Social History Hx Tobacco Use: Yes (10 cigarettes daily) Hx Alcohol Use: Yes Hx Substance Use: No - Immunization History Hx Tetanus Toxoid Vaccination: No Hx Influenza Vaccination: No Hx Pneumococcal Vaccination: No Review Of Systems Constitutional: Negative for: Fever, Other (LOC or syncope) Eyes: Negative for: Vision Change ENT: Negative for: Nose Congestion Cardiovascular: Negative for: Chest Pain, Palpitations, Light Headedness Respiratory: Negative for: Cough, Shortness of Breath Gastrointestinal: Negative for: Nausea, Vomiting, Abdominal Pain Musculoskeletal: Negative for: Neck Pain, Back Pain Skin: Positive for: Lesions (scalp laceration) Neurological: Positive for: Headache. Negative for: Weakness, Numbness, Incoordination, Change in Speech, Confusion, Seizures, Altered Mental Status, Dizziness Physical Exam - Physical Exam Appears: No Acute Distress, Unkempt, Other (Uncooperative) Skin: Warm, Dry Head: Normacephalic, Abrasion (3 cm old healing vertical abrasion to forehead), Laceration (stellate laceration to left posterior scalp, with underlying hematoma, + minimal active bleeding) Eye(s): bilateral: Normal Inspection, PERRL, EOMI Ear(s): Bilateral: Normal (no hemotypanum) Nose: Normal Oral Mucosa: Moist Throat: Normal Neck: Normal ROM, No Decreased ROM, No Midline Cervical Tenderness, No Paracervical Tenderness, Supple Chest: Symmetrical Cardiovascular: Rhythm Regular, No Murmur Respiratory: Normal Breath Sounds, No Accessory Muscle Use, Other (No respiratory distress) Gastrointestinal/Abdominal: Soft, No Tenderness Back: Normal Inspection, No Vertebral Tenderness Extremity: Normal ROM, Capillary Refill (<2s) Extremity: Bilateral: Atraumatic, Normal Color And Temperature, Normal ROM Pulses: Left Radial: Normal, Right Radial: Normal Neurological/Psych: Oriented x3, Normal Speech, Normal Cranial Nerves, Normal Motor, Normal Sensation, Other (No focal deficits) Gait: Steady ED Course And Treatment O2 Sat by Pulse Oximetry: 95 (RA) Pulse Ox Interpretation: Normal - Other Rad CXR X-Ray: Read By Radiologist Interpretation: Accession No. : [id number]. Patient Name / ID : INEZ CANTU / [id number]. Exam Date : 01/02/2019 12:30:39 ( Approved ). Study Com ment : Sex / Age : F / 53Y. Creator : jose enrique beach. Dictator : Beba Renteria. Burlap Man : Manager Action : Beba Renteria. Approver2 : Report Date : 01/02/2019 12:40:04. My Comment : . Date of service: 01/02/2019. HISTORY: possible left upper lobe hyperdensity on Cspine CT. COMPARISON: CT cervical spine report/study 01/02/2019. Chest x-ray 10/15/2017. TECHNIQUE: Chest PA and lateral. FINDINGS: LUNGS: The ill-defined opacity in the right upper lung zone is noted. No left-sided hyperdensity seen is referenced on the CT study. This finding is also not present on the 10/15/2017 chest x-ray. Equivocal trace discoid like atelectasis left extreme costophrenic angle. PLEURA: No significant pleural effusion identified. No pneumothorax apparent. CARDIOVASCULAR: No aortic atherosclerotic calcification present. Probably top-normal. No significant appearing pulmonary venous congestion. OSSEOUS STRUCTURES: No significant abnormalities. VISUALIZED UPPER ABDOMEN: Normal. OTHER FINDINGS: None. IMPRESSION: No hyperdensity in the left upper lobe as was question on the CT cervical spine report. There is however a heterogeneous opacity in the right mid to upper lung zone not present on the 2016 chest x-ray but noted on the skinner pelts 01/02/2019 CT cervical spine study. A noncontrast CT chest study to further evaluate this is advised. Diagnosis of exclusion is malignancy. - CT Scan/US CT Head Other Rad Studies (CT/US): Read By Radiologist, Radiology Report Reviewed CT/US Interpretation: Accession No. : [id number]. Patient Name / ID : INEZ CANTU / [id number]. Exam Date : 01/02/2019 11:46:21 ( Approved ). Study Comment : Sex / Age : F / 53Y. Creator : Lexi Pride. Dictator : Estefanía Lobo MD. Burlap Man : Manager Action : Estefanía Lobo MD. Approver2 : Report Date : 01/02/2019 11:56:42. My Comment : . Date of service: 01/02/2019. PROCEDURE: CT HEAD WITHOUT CONTRAST. HISTORY: trauma, laceration and hematoma to posterior scalp. COMPARISON: Noncontrast head CT performed 11/07/11. TECHNIQUE: Axial computed tomography images were obtained through the head/brain without intravenous contrast. Radiation dose: Total exam DLP = 1170.34 mGy-cm. This CT exam was performed using one or more of the following dose reduction techniques: Automated exposure control, adjustment of the mA and/or kV according to patient size, and/or use of iterative reconstruction technique. FINDINGS: HEMORRHAGE: No intracranial hemorrhage. BRAIN: No mass effect or edema. Cash-white matter differentiation appears intact. Please note that MRI with diffusion imaging is more sensitive in the detection of acute ischemic event. VENTRICLES: No hydrocephalus. CALVARIUM: Unremarkable. PARANASAL SINUSES: Unremarkable as visualized. No significant inflammatory changes. MASTOID AIR CELLS: Unremarkable as visualized. No inflammatory changes. OTHER FINDINGS: Large left posterior scalp hematoma with subcutaneous air consistent with provided history of laceration. IMPRESSION: No acute intracranial pathology identified. Large left posterior scalp hematoma with subcutaneous air consistent with provided history of laceration. CT C-Spine Other Rad Studies (CT/US): Read By Radiologist, Radiology Report Reviewed CT/US Interpretation: Accession No. : [id number]. Patient Name / ID : INEZ CANTU / [id number]. Exam Date : 01/02/2019 11:49:03 ( Approved ). Study Comment : Sex / Age : F / 53Y. Creator : Lexi Pride. Dictator : Estefanía Lobo MD. Burlap Man : Manager Action : Estefanía Lobo MD. Approver2 : Report Date : 01/02/2019 12:07:42. My Comment : . Date of service: 01/02/2019. CT cervical spine without IV contrast. Indication: trauma. Comparison: None available. Technique: Axial computed tomography images were obtained of the cervical spine without the use of intravenous contrast. Coronal and sagittal reformatted images were created and reviewed. This CT exam was performed using 1 or more of the following dose reduction techniques: Automated exposure control, adjustment of the MAA and/or kV according to patient size, and/or use of iterative reconstruction technique. Radiation dose: Total exam DLP = 403.85 mGy-cm. Findings: Straightening of the normal cervical lordosis may be related to muscle spasm or positioning. Multilevel degenerative changes with intervertebral disc space narrowing and osteophyte formation. Facet hypertrophy. There is no evidence of acute fracture or subluxation. The prevertebral soft tissues and spinolaminar lines appear intact. The lateral masses are preserved. The dens tip is intact. There is proper alignment of the lateral masses of C1 with the C2 vertebral body. Included portions of the thyroid gland appear unremarkable. Included portions of lung apices demonstrate partially imaged nonspecific left upper lobe hyperdensity which cannot be further characterized due to limited inclusion on this examination. Impression: Straightening of the normal cervical lordosis may be related to muscle spasm or positioning. No evidence of acute fracture or subluxation. Multilevel degenerative changes. Included portions of lung apices demonstrate partially imaged nonspecific left upper lobe hyperdensity which cannot be further characterized due to limited inclusion on this examination. Recommend chest PA and lateral radiograph. Laceration - Laceration Repair left posterior scalp Wound Length (In cm): 8 Description Of Wound: Stellate (star-shaped) Wound Cleansed With: Betadine, Sterile Saline Anesthesia: Lidocaine 2% Wound Examination: Irrigated With Saline, No FB With Wound Exploration Wound Closure: Suture (x 20) Suture Technique And Material Used: Interrupted, Prolene (4:0) Wound Complexity: Simple Medical Decision Making Medical Decision Making: Impression: Head trauma, laceration Initial Plan: --Tetanus booster given --Wound care provided --Pending CT Head and C-spine Progress/Updates: CT Head is negative. CT C-spine incidentally shows partially imaged nonspecific left upper lobe hyperdensity. CXR ordered to further evaluate, as recommended. Wound was irrigated with saline and cleaned by vein access technician. 20 simple interrupted prolene sutures were placed. Hemostasis achieved. Bacitracin and sterile wound dressing applied. Patient educated regarding wound care instructions and educated to return in 7-10 days for removal. Will discharge patient home with rx for Keflex, given initial dose in the ED. ED attending Dr. Correia evaluated and examined patient at bedside s/p laceration repair and agrees with repair technique and disposition to discharge home with PMD followup. CXR shows no hyperdensity, however there is another incidental finding: a heterogeneous opacity in the right mid to upper lung zone. Findings discussed in detail with patient, including importance of followup to rule out malignancy; all questions answered. Recommended patient complete outpatient noncontrast CT Chest in order to rule out malignancy. Counseled patient regarding the importance of follow up with primary doctor as well as possible sequelae of closed head injuries. Patient verbalizes understanding, states she will follow up to complete outpatient imaging. Diagnostic testing results and plan of care discussed with patient. Strict instructions given regarding prescription use, importance of followup, and signs/symptoms to return to ER including fever, chills, signs of wound infection, dizziness, worsening headache, vision changes, or any other new/worsening symptoms. Pt verbalized understanding of discussion. Patient is A&Ox3, ambulating with steady gait, with vital signs stable for discharge. Disposition - Disposition Referrals: [facility] [Outside] Disposition: HOME/ ROUTINE Disposition Time: 14:14 Condition: IMPROVED Additional Instructions: RETURN IN 7-10 DAYS FOR SUTURE REMOVAL Keep wound dry and covered for 48 hours After 48 hours, you may clean the wound daily with soap and water and pat dry After cleaning, apply bacitracin and dressing Keep wound clean, dry, and covered Followup with primary doctor within 2 days Return to ER for any signs of wound infection including redness, tenderness, swelling, drainage, fever or any other new/worsening symptoms Prescriptions: Bacitracin OINT 1 applic TP DAILY #1 tube Cephalexin [Keflex] 500 mg PO QID 7 Days #28 capsule Instructions: Postconcussion Syndrome, Wound Care (DC), Closed Head Injury (DC) Forms: General Discharge Instructions, [facility] (Norwegian), Work Excuse - Clinical Impression Clinical Impression: Closed head injury, Scalp laceration - PA / MANAGER BACKGROUND / Resident Statement MD/DO has reviewed & agrees with the documentation as recorded. - Scribe Statement The provider has reviewed the documentation as recorded by the Scribgiles Constantino All medical record entries made by the Scribe were at my direction and personally dictated by me. I have reviewed the chart and agree that the record accurately reflects my personal performance of the history, physical exam, medical decision making, and the department course for this patient. I have also personally directed, reviewed, and agree with the discharge instructions and disposition.
--- NOTE | 2019-01-02 12:16 | CT ---
Date of service: 01/02/2019 PROCEDURE: CT HEAD WITHOUT CONTRAST. HISTORY: trauma, laceration and hematoma to posterior scalp COMPARISON: Noncontrast head CT performed 11/07/11 TECHNIQUE: Axial computed tomography images were obtained through the head/brain without intravenous contrast. Radiation dose: Total exam DLP = 1170.34 mGy-cm. This CT exam was performed using one or more of the following dose reduction techniques: Automated exposure control, adjustment of the mA and/or kV according to patient size, and/or use of iterative reconstruction technique. FINDINGS: HEMORRHAGE: No intracranial hemorrhage. BRAIN: No mass effect or edema. Cash-white matter differentiation appears intact. Please note that MRI with diffusion imaging is more sensitive in the detection of acute ischemic event. VENTRICLES: No hydrocephalus. CALVARIUM: Unremarkable. PARANASAL SINUSES: Unremarkable as visualized. No significant inflammatory changes. MASTOID AIR CELLS: Unremarkable as visualized. No inflammatory changes. OTHER FINDINGS: Large left posterior scalp hematoma with subcutaneous air consistent with provided history of laceration. IMPRESSION: No acute intracranial pathology identified. Large left posterior scalp hematoma with subcutaneous air consistent with provided history of laceration.
--- NOTE | 2019-01-02 12:26 | CT ---
Date of service: 01/02/2019 CT cervical spine without IV contrast Indication: trauma Comparison: None available Technique: Axial computed tomography images were obtained of the cervical spine without the use of intravenous contrast. Coronal and sagittal reformatted images were created and reviewed. This CT exam was performed using 1 or more of the following dose reduction techniques: Automated exposure control, adjustment of the MAA and/or kV according to patient size, and/or use of iterative reconstruction technique. Radiation dose: Total exam DLP = 403.85 mGy-cm. Findings: Straightening of the normal cervical lordosis may be related to muscle spasm or positioning. Multilevel degenerative changes with intervertebral disc space narrowing and osteophyte formation. Facet hypertrophy. There is no evidence of acute fracture or subluxation. The prevertebral soft tissues and spinolaminar lines appear intact. The lateral masses are preserved. The dens tip is intact. There is proper alignment of the lateral masses of C1 with the C2 vertebral body. Included portions of the thyroid gland appear unremarkable. Included portions of lung apices demonstrate partially imaged nonspecific left upper lobe hyperdensity which cannot be further characterized due to limited inclusion on this examination. Impression: Straightening of the normal cervical lordosis may be related to muscle spasm or positioning. No evidence of acute fracture or subluxation. Multilevel degenerative changes. Included portions of lung apices demonstrate partially imaged nonspecific left upper lobe hyperdensity which cannot be further characterized due to limited inclusion on this examination. Recommend chest PA and lateral radiograph.
[2019-01-02] MEDS ORDERED: Lidocaine 2% Inj (20ml) INFIL ONE (12:42)
[2019-01-02] MEDS ORDERED: Lidocaine 2% MPF (5 ml) Inj ONE ×2 (12:47)
[2019-01-02] MEDS ORDERED: Bacitracin 500 Units/gm Oint Foilpak UD TOP ONE (14:02)
--- NOTE | 2019-01-02 14:07 | RAD ---
Date of service: 01/02/2019 HISTORY: possible left upper lobe hyperdensity on Cspine CT COMPARISON: CT cervical spine report/study 01/02/2019. Chest x-ray 10/15/2017 TECHNIQUE: Chest PA and lateral FINDINGS: LUNGS: The ill-defined opacity in the right upper lung zone is noted. No left-sided hyperdensity seen is referenced on the CT study. This finding is also not present on the 10/15/2017 chest x-ray. Equivocal trace discoid like atelectasis left extreme costophrenic angle. PLEURA: No significant pleural effusion identified. No pneumothorax apparent. CARDIOVASCULAR: No aortic atherosclerotic calcification present. Probably top-normal. No significant appearing pulmonary venous congestion. OSSEOUS STRUCTURES: No significant abnormalities. VISUALIZED UPPER ABDOMEN: Normal. OTHER FINDINGS: None. IMPRESSION: No hyperdensity in the left upper lobe as was question on the CT cervical spine report. There is however a heterogeneous opacity in the right mid to upper lung zone not present on the 2016 chest x-ray but noted on the vocational technical education director 01/02/2019 CT cervical spine study. A noncontrast CT chest study to further evaluate this is advised. Diagnosis of exclusion is malignancy. Comments: Study marked for PA review .
[2019-01-02] MEDS ORDERED: Bacitracin 500 Units/gm Oint Foilpak UD ONE (14:20)
[2019-01-02 14:54] VITALS: BP 110/82; PULSE 98; RESP 18; TEMP 98.3
== END 2019-01-02 14:53 | disposition home or self-care (01) ==
LOC: C.ER 10:14
DX: S01.01XA Laceration without foreign body of scalp, initial encounter (principal); W20.8XXA Other cause of strike by thrown, projected or falling object, initial encounter; Z23 Encounter for immunization; F17.210 Nicotine dependence, cigarettes, uncomplicated